=== PATIENT | female | born 1985 | race Caucasian/White ===

== ENCOUNTER 2017-09-30 08:18 | Inpatient (IN) | payer OTHER ==
[~2017-09-30] VITALS: Ht 167.6 cm; Wt 111.1 kg
[2017-09-30] MEDS ORDERED: ADV100INH INH (08:27)
[2017-09-30] MEDS ORDERED: LORA10TA2 PO (08:27)
[2017-09-30] MEDS ORDERED: ONDANSETRON 4MG/2ML VIAL (J2405) IV ONE (08:45)
[2017-09-30] MEDS ORDERED: NS 1,000 ML IV ONE (08:45)
[2017-09-30 09:05] LABS: BASO # 0.1 10^3/uL (0.0-0.2); BASO % 0.3 % (0.0-1.0); IMMATURE GRANULOCYTE % 1.2 % (0-0); LYMPH # 1.4 10^3/uL (1.5-4.5); MEAN CORPUSCULAR HEMOGLOBIN 28.3 pg (27.0-33.0); MEAN CORPUSCULAR HGB CONC 34.5 g/dl (32.0-36.5); MONO # 0.4 10^3/uL (0.0-0.8); MONO % 2.2 % (0.0-5.0); NEUTROPHILS % 87.3 % (36.0-66.0); PLATELET COUNT, AUTOMATED 320 10^3/uL (150-450); RED CELL DISTRIBUTION WIDTH 12.4 % (11.5-14.5); WHITE BLOOD COUNT 16.1 10^3/uL (4.0-10.0)
[2017-09-30] MEDS: MORPHINE 4 MG/ML 1ML SYRINGE IV PRN ×3 (09:19→16:16)
[2017-09-30 09:31] LABS: ALBUMIN 3.8 GM/DL (3.2-5.2); ALBUMIN/GLOBULIN RATIO 1.09 (1.00-1.93); ALKALINE PHOSPHATASE 82 U/L (45-117); ALT/SGPT 19 U/L (12-78); AMYLASE 28 U/L (25-115); ANION GAP 8 MEQ/L (8-16); AST/SGOT 9 U/L (7-37); BILIRUBIN,DIRECT 0.1 MG/DL (0.0-0.2); BILIRUBIN,TOTAL 0.4 MG/DL (0.2-1.0); BLOOD UREA NITROGEN 12 MG/DL (7-18); CALCIUM LEVEL 8.8 MG/DL (8.5-10.1); CARBON DIOXIDE LEVEL 26 MEQ/L (21-32); CHLORIDE LEVEL 106 MEQ/L (98-107); GLOMERULAR FILTRATION RATE > 60.0 (>60); GLUCOSE, FASTING 126 MG/DL (70-105); POTASSIUM SERUM 4.4 MEQ/L (3.5-5.1); SODIUM LEVEL 140 MEQ/L (136-145); TOTAL PROTEIN 7.3 GM/DL (6.4-8.2)
--- NOTE | 2017-09-30 09:37 | REP ---
Abdominal right upper quadrant ultrasound: There is a positive Reed's sign to transducer pressure. There is 2.5 cm calculus in the gallbladder neck. The gallbladder is distended measuring up to 4.0 cm transversely. This is compatible with hydrops in the appropriate clinical setting. The gallbladder wall is thickened measuring 4.1 mm compatible with edema. There is no pericholecystic fluid. Findings are compatible with acute cholecystitis in the appropriate clinical setting. There is no intrahepatic or extrahepatic biliary duct dilatation, the common duct measures 4.5 mm in diameter. The hepatic parenchyma is homogeneous and unremarkable. The visualized portion of the pancreatic neck is unremarkable. The body and tail are obscured by bowel gas. There is no right renal hydronephrosis, calculus, mass or cyst. Right kidney is normal size measuring 2.3 cm craniocaudad length. Visualized portion of the abdominal aorta is unremarkable. There is no free fluid in the abdominal right upper quadrant. Impression: The findings are compatible with gallbladder h hydrops and acute cholecystitis in the appropriate clinical setting. There is a 2.5 centimeter calculus in the gallbladder neck and gallbladder wall thickening. No pericholecystic fluid. No biliary duct dilatation. Signed by Anival Pope MD 09/30/2017 09:29 A
[2017-09-30] MEDS ORDERED: VENTAER INH (10:42)
[2017-09-30] MEDS ORDERED: TYLE325T5 PO (10:42)
[2017-09-30] MEDS ORDERED: MONO0.25 PO (10:42)
[2017-09-30] MEDS ORDERED: CIPROFLOXACIN 400 MG in APPROPRIATE DILUENT 1 EA IV ONE (10:45)
[2017-09-30] MEDS ORDERED: metroNIDAZOLE 500 MG in APPROPRIATE DILUENT 1 EA IV ONE (10:45)
[2017-09-30] MEDS ORDERED: METOCLOPRAMIDE INJ 10MG/2ML VIAL (J2765) IV ONE (12:15)
[2017-09-30] MEDS ORDERED: MORPHINE 4 MG/ML 1ML SYRINGE IV ONE (12:15)
[2017-09-30] MEDS ORDERED: PROMETHAZINE INJ 25 MG/ML VIAL (J2550) IV PRN (12:30)
[2017-09-30 13:45] VITALS: BP 165/88
[2017-09-30] MEDS: LR 1,000 ML IV SCH ×2 (14:30→20:40)
[2017-09-30] MEDS: NORCO, ANEXSIA 5/325MG TABLET (HYDROcodone/ACETAMINOPHEN) PO PRN ×2 (14:45→20:41)
[2017-09-30] MEDS: ONDANSETRON 4MG/2ML VIAL (J2405) IV PRN (15:49)
[2017-09-30 20:00] VITALS: BP 135/86
[2017-09-30] MEDS ORDERED: ALBUTEROL 90 MCG/ACT 8GM HFA INHALER INH PRN (20:30)
[2017-09-30] MEDS: SENOKOT S TAB PO SCH (20:40)
[2017-09-30] MEDS: metroNIDAZOLE 500 MG in APPROPRIATE DILUENT 1 EA IV SCH (20:41)
[2017-09-30] MEDS: PANTOPRAZOLE 40MG INJ (PROTONIX) (C9113) IV SCH (20:42)
[2017-09-30] MEDS: ENOXAPARIN 40 MG/0.4 ML SYRINGE (J1650) SC SCH (21:00)
[2017-09-30] MEDS: ADVAIR HFA 115/21MCG INHALER INH SCH (21:00)
--- NOTE | 2017-09-30 21:01 | HPEPDOC ---
General Date of Admission Chief Complaint The patient is a 32-year-old female admitted with a reason for visit of abdominal pain. Source: Patient History of Present Illness The abdominal pain began at 2100 last evening about 11 hours prior to arrival in ED. Never had pain like this before. Patient thought that she was experiencing "gas pains" but found no relief despite taking Gas-X or Pepcid at home. No change with Tums or using a heating pad. She describes the pain as RUQ in location with radiation through to the back and scapula, no shoulder pain. She describes the pain as sharp in quality and 6-7/10 in severity at its worst. The pain has been intermittent, waxing and waning but never fully resolving. Patient states she "couldn't get comfortable" although the pain did not change with position. Throughout the night and early this morning she reports increasing nausea which she attributes to the increasing pain. She had multiple episodes of vomiting at home and once in the ED. The vomit appeared orange initially and then changed to a yellow/green color. She vomited 6 times total but none since receiving Zofran in the ED. In the vomit, she recognized chunks of pizza which she had for dinner and shared with her and children. No other family members were sick after eating or have recently had GI symptoms. No recent fever, chills, night sweats or weight loss. No hematemesis or coffee ground emesis. Her stools have been looser than usual this morning but patient denies watery diarrhea, bloody stools or dark/tarry stools. Home Medications Scheduled ([place] 0.25-35 mg-Mcg) 1 Tab Tab, 1 TAB PO DAILY, (Reported) Loratadine (Loratadine) 10 Mg Tab, 10 MG PO QHS, (Reported) Salmeterol/Fluticasone (Advair Diskus 100-50 Mcg/Dose) 28 Puff/Inhaler Aerp, 1 PUFF INH BID, (Reported) Scheduled PRN Acetaminophen (Tylenol) 325 Mg Tab, 650 MG PO Q4H PRN for PAIN, (Reported) Albuterol Sulfate (Ventolin Hfa) 108 Mcg/Act Aer, 2 PUFFS INH Q4H PRN for SHORTNESS OF BREATH, (Reported) Allergies Coded Allergies: Azithromycin (Verified Allergy, Unknown, 09/30/17) Sulfa Antibiotics (Verified Allergy, Unknown, 09/30/17) Past Medical History Medical History PMH: Occasional heartburn for which she takes OTC medications mentioned in HPI as needed Asthma HOSPITALIZATIONS: none HEALTH MAINTENANCE: Pap smears UTD. Last mammogram in December. Received Flu shot one week ago. Surgical History Section x2, 2005 and 2007 Family History No history of gallbladder disease No history of liver disease No history of GI cancer Social History * Smoker: Denies Alcohol: rarely (glass of wine every 2-3 months) Drugs: denies Recent Travel/Sick Contacts: Denies: Recent sick contacts OCCUPATION: Stay at home mother. Lives locally with who is at bedside. DIET: Per , both have been eating more fast food recently. Review of Symptoms Constitutional: Denies: Chills, Fever, Night Sweats, Weight Loss ENT: Reports: Other Symptoms (URI symptoms last week including sore throat and stuffy nose last week but resolved now) Skin: Denies: Jaundice Pulmonary: Denies: Cough Cardiovascular: Denies: Chest Pain Gastrointestinal: Reports: Nausea, Vomiting, Abdominal Pain, Denies: Diarrhea, Constipation, Melena, Hematochezia Genitourinary: Denies: Dysuria Hematologic: Denies: Bruising, Bleeding Excessively Other systems LYMPH: no lymphadenopathy Physical Examination General Exam: Positive: Alert, Cooperative, No Acute Distress Eye Exam: Positive: Conjunctiva & lids normal (no scleral icterus) ENT Exam: Positive: Atraumatic Chest Exam: Positive: Normal air movement, Negative: Rales, Rhonchi, Wheezing Heart Exam: Positive: Rate Normal, Regular Rhythm, Negative: Murmurs Abdomen Exam: Positive: Normal bowel sounds, Soft, Tenderness (RUQ with voluntary guarding and positive Reed's sign, no rebound), Negative: Hepatospenomegaly Extremity Exam: Negative: Clubbing, Cyanosis, Edema Skin Exam: Negative: Pruritus (no jaundice) Neuro Exam: Positive: Normal Speech Psych Exam: Positive: Mood NL Vital Signs Vital Signs Date Time Temp Pulse Resp B/P (MAP) Pulse Ox O2 Delivery O2 Flow Rate FiO2 09/30/17 12:24 18 09/30/17 11:28 98.6 72 171/94 (119) 98 09/30/17 10:21 Room Air Laboratory Data Labs 24H Laboratory Tests 2 09/30/17 08:54: Immature Granulocyte % (Auto) 1.2H, White Blood Count 16.1H, Red Blood Count 5.06, Hemoglobin 14.3, Hematocrit 41.5, Mean Corpuscular Volume 82.0, Mean Corpuscular Hemoglobin 28.3, Mean Corpuscular Hemoglobin Concent 34.5, Red Cell Distribution Width 12.4, Platelet Count 320, Neutrophils (%) (Auto) 87.3H, Lymphocytes (%) (Auto) 9.0L, Monocytes (%) (Auto) 2.2, Eosinophils (%) (Auto) 0.0, Basophils (%) (Auto) 0.3, Neutrophils # (Auto) 14.0H, Lymphocytes # (Auto) 1.4L, Monocytes # (Auto) 0.4, Eosinophils # (Auto) 0.0, Basophils # (Auto) 0.1, Immature Granulocyte # (Auto) 0.2H, Nucleated Red Blood Cells % (auto) 0.0, Anion Gap 8, Glomerular Filtration Rate > 60.0, Calcium Level 8.8, Aspartate Amino Transf (AST/SGOT) 9, Alanine Aminotransferase (ALT/SGPT) 19, Alkaline Phosphatase 82, Total Bilirubin 0.4, Direct Bilirubin 0.1, Total Protein 7.3, Albumin 3.8, Albumin/Globulin Ratio 1.09, Amylase Level 28, Lipase 145 09/30/17 10:02: Urine Appearance CLEAR, Urine Color YELLOW, Urine pH 5.0, Urine Specific [place] 1.027, Urine Protein NEGATIVE, Urine Glucose (UA) NEGATIVE, Urine Ketones 1+H, Urine Urobilinogen 0.2, Urine Bilirubin NEGATIVE, Urine Leukocyte Esterase NEGATIVE, Urine Blood NEGATIVE, Urine Nitrite NEGATIVE, Urine WBC (Auto ) 0, Urine RBC (Auto) 1, Urine Hyaline Casts (Auto) 0, Urine Bacteria (Auto) NEGATIVE, Urine Squamous Epithelial Cells 1, Urine Mucus (Auto) SMALL, Urine Sperm (Auto) CBC/BMP Laboratory Tests 09/30/17 08:54 Red Blood Count 5.06, Mean Corpuscular Volume 82.0, Mean Corpuscular Hemoglobin 28.3, Mean Corpuscular Hemoglobin Concent 34.5, Red Cell Distribution Width 12.4 , Neutrophils (%) (Auto) 87.3 H, Lymphocytes (%) (Auto) 9.0 L, Monocytes (%) ( Auto) 2.2, Eosinophils (%) (Auto) 0.0, Basophils (%) (Auto) 0.3, Neutrophils # ( Auto) 14.0 H, Lymphocytes # (Auto) 1.4 L, Monocytes # (Auto) 0.4, Eosinophils # (Auto) 0.0, Basophils # (Auto) 0.1 RAD Interpretation STUDY: ULTRASOUND RUQ Rad Actions: Report Reviewed RAD Interpretation: Other Result Comments: (2.5cm calculus in the gallbladder neck and GBW thickening. No pericholecystic fluid. No biliary duct dilation) Assessment/Plan 1. Acute Cholecystitis. Gallbladder ultrasound that the findings are compatible with gallbladder hydrops and acute cholecystitis in the appropriate clinical setting. There is a 2.5 centimeter calculus in the gallbladder neck and gallbladder wall thickening. No pericholecystic fluid. No biliary duct dilatation. Patient will be admitted. NPO today. Laparoscopic cholecystomy in the am. Will continue with pain management, fluids at 175mls/ hour and antibiotics (cipro and flagyl). Also zofran PRN on board for nausea, Will continue with home medication for asthma while inpatient as well. Plan / VTE VTE Prophylaxis Ordered?: Yes (LOVENOX) GME ATTESTATION GME ATTESTATION My preceptor for this patient encounter was physically present in the building during the encounter and was fully available. As needed, all aspects of the patient interview, examination, medical decision making process, and medical care plan development were reviewed and approved by the preceptor. Preceptor is aware and concurs with the plan as stated in the body of this note and will attest to such by his/her cosignature. HENRY AMAYA DO Sep 30, 2017 13:45
[2017-09-30 22:00] VITALS: BP 135/86
[2017-09-30] MEDS: CIPROFLOXACIN 400 MG in APPROPRIATE DILUENT 1 EA IV SCH (23:37)
[2017-10-01 04:00] VITALS: BP 135/81
[2017-10-01] MEDS: metroNIDAZOLE 500 MG in APPROPRIATE DILUENT 1 EA IV SCH ×3 (05:42→20:18)
[2017-10-01 08:00] VITALS: BP 138/79
[2017-10-01] MEDS: ADVAIR HFA 115/21MCG INHALER INH SCH ×2 (08:01→19:33)
[2017-10-01] MEDS: NORCO, ANEXSIA 5/325MG TABLET (HYDROcodone/ACETAMINOPHEN) PO PRN ×2 (08:28→12:34)
[2017-10-01] MEDS: LR 1,000 ML IV SCH ×2 (08:28→19:08)
[2017-10-01] MEDS: SENOKOT S TAB PO SCH ×2 (09:00→20:18)
--- NOTE | 2017-10-01 10:43 | IPNPDOC ---
Subjective General Date/Time Seen The patient was seen on 10/01/17 at 10:41. Subject Chief Complaint/History The patient is a 32-year-old female admitted with a reason for visit of Acute Cholecystitis. Current Medications Current Medications Current Medications Acetaminophen/ Hydrocodone Bitart ([place], Anexsia 5/325) 1 tab Q4HP PRN PO MODERATE PAIN (PS 5-7) Last administered on 10/01/17 08:28; Start 09/30/17 at 12:30; Stop 10/07/17 at 12:29 Acetaminophen/ Hydrocodone Bitart ([place], Anexsia 5/325) 2 tab Q6HP PRN PO SEVERE PAIN (PS 8-10); Start 09/30/17 at 12:30; Stop 10/07/17 at 12:29 Albuterol Sulfate (Proventil, Ventolin Hfa) 2 puff Q6HP PRN INH SHORTNESS OF BREATH; Start 09/30/17 at 20:30; Stop 10/30/17 at 20:29 Ciprofloxacin 400 mg/IV Miscellaneous Supplies 200 ml @ 200 mls/hr Q12H IV Last administered on 09/30/17 23:37; Start 10/01/17 at 00:00; Stop 10/08/17 at 00:00 Enoxaparin Sodium (Lovenox) 40 mg DAILY@2100 SC ; Start 09/30/17 at 21:00; Stop 10/05/17 at 20:59 Home Med (Med Rec Complete!) ASDIRECTED XX ; Start 09/30/17 at 10:45; Stop 09/30/17 at 10:45; Status DC Lactated Ringer's 1,000 ml @ 125 mls/hr Q8H IV Last administered on 10/01/17 08:28; Start 09/30/17 at 12:20; Stop 10/30/17 at 12:19 Metronidazole 500 mg/IV Miscellaneous Supplies 100 ml @ 100 mls/hr Q8H IV Last administered on 10/01/17 05:42; Start 09/30/17 at 21:00; Stop 10/07/17 at 20:59 Morphine Sulfate (Morphine Sulfate Inj) 4 mg Q15M PRN IV MODERATE/SEVERE PAIN ( PS 5-10) Last administered on 09/30/17 10:25; Start 09/30/17 at 08:45; Stop at 10:30; Status DC Morphine Sulfate (Morphine Sulfate Inj) 4 mg Q2HP PRN IV SEVERE PAIN (PS 8-10) Last administered on 09/30/17 16:16; Start 09/30/17 at 12:30; Stop 10/07/17 at 12:29 Ondansetron HCl (ZOFRAN INJection) 4 mg Q6HP PRN IV NAUSEA OR VOMITING Last administered on 09/30/17 15:49; Start 09/30/17 at 12:30; Stop 10/30/17 at 12:29 Pantoprazole Sodium (Protonix) 40 mg DAILY@2100 IV Last administered on 20:42; Start 09/30/17 at 21:00; Stop 10/30/17 at 20:59 Promethazine HCl (PHENERGAN INJection) 12.5 mg Q6HP PRN IV NAUSEA Last administered on 09/30/17 20:42; Start 09/30/17 at 12:30; Stop 10/30/17 at 12:29 Salmeterol Xinafoate/ Fluticasone (Advair Hfa 115/ 21) 2 puff BID INH Last administered on 10/01/17 08:01; Start 09/30/17 at 21:00; Stop 10/30/17 at 20:59 Senna/Docusate Sodium (Senokot S) 1 tab BID PO Last administered on 09/30/17 20:40; Start 09/30/17 at 21:00; Stop 10/30/17 at 20:59 Allergies Coded Allergies: Azithromycin (Verified Allergy, Unknown, 09/30/17) Sulfa Antibiotics (Verified Allergy, Unknown, 09/30/17) Objective Physical Examination Examination GENERAL APPEARANCE:mildly uncomfortable. SKIN: Warm and moist. HEENT: Normocephalic, atraumatic. [place] palpebral conjunctiva, anicteric sclerae. Lips and mucosa appear moist. NECK: Supple, no thyromegaly. No obvious jugular venous distention. LUNGS: Clear to auscultation bilaterally. No wheezing appreciated. HEART: No chest wall abnormalities. Regular rate and rhythm with no murmurs appreciated. ABDOMEN: Abdomen is round, soft, minimally distended. mildly tender right upper quadrant area,. EXTREMITIES: Extremities have no deformities. No edema identified. Vital Signs Vital Signs Date Time Temp Pulse Resp B/P (MAP) Pulse Ox O2 Delivery O2 Flow Rate FiO2 10/01/17 09:15 18 10/01/17 08:00 98.6 88 138/79 (98) 98 Room Air I&Os I&O- Last 24 Hours up to 6 AM 10/02/17 06:00 Intake Total 0 ml Output Total 450 ml Balance -450 ml Impression Acute Cholecystitis Continue with IV antibiotics Patient for lap cholecystectomy today. Reviewed with her risks and benefits of the procedure including risks for bleeding, bile duct injury, bile leakage, possible need for conversion to open surgery. Consent obtained from the patient. Plan / VTE VTE Prophylaxis Ordered?: Yes (LOVENOX) RAJESH CABALLERO MD Oct 01, 2017 10:43
[2017-10-01] MEDS: CIPROFLOXACIN 400 MG in APPROPRIATE DILUENT 1 EA IV SCH (11:03)
[2017-10-01] MEDS: ONDANSETRON 4MG/2ML VIAL (J2405) IV PRN (12:34)
[2017-10-01 16:00] VITALS: BP 132/79
[2017-10-01] MEDS: ENOXAPARIN 40 MG/0.4 ML SYRINGE (J1650) SC SCH (19:46)
[2017-10-01] MEDS: PANTOPRAZOLE 40MG INJ (PROTONIX) (C9113) IV SCH (20:18)
[2017-10-02] VITALS (7 sets, daily range): BP systolic 122–153; BP diastolic 70–93
[2017-10-02] MEDS: CIPROFLOXACIN 400 MG in APPROPRIATE DILUENT 1 EA IV SCH ×3 (00:01→23:09)
[2017-10-02] MEDS: LR 1,000 ML IV SCH ×3 (03:00→12:20)
[2017-10-02] MEDS: metroNIDAZOLE 500 MG in APPROPRIATE DILUENT 1 EA IV SCH ×3 (05:40→21:09)
[2017-10-02] MEDS: ADVAIR HFA 115/21MCG INHALER INH SCH ×2 (08:28→19:35)
[2017-10-02] MEDS: SENOKOT S TAB PO SCH ×2 (08:33→21:09)
[2017-10-02] MEDS ORDERED: BUPIVACAINE HCL 0.25% 30 ML VIAL As Ordered ONE (10:59)
[2017-10-02] MEDS ORDERED: LIDOCAINE 1% SDV INJ 30 ML VIAL As Ordered ONE (10:59)
--- NOTE | 2017-10-02 11:09 | IPNPDOC ---
Subjective General Date/Time Seen The patient was seen on 10/02/17 at 11:07. Subject Chief Complaint/History The patient is a 32-year-old female admitted with a reason for visit of Acute Cholecystitis. Still some mild right upper quadrant pressure type discomfort, no nausea. Afebrile. Current Medications Current Medications Current Medications Acetaminophen/ Hydrocodone Bitart ([place], Anexsia 5/325) 1 tab Q4HP PRN PO MODERATE PAIN (PS 5-7) Last administered on 10/01/17 12:34; Start 09/30/17 at 12:30; Stop 10/07/17 at 12:29 Acetaminophen/ Hydrocodone Bitart ([place], Anexsia 5/325) 2 tab Q6HP PRN PO SEVERE PAIN (PS 8-10); Start 09/30/17 at 12:30; Stop 10/07/17 at 12:29 Albuterol Sulfate (Proventil, Ventolin Hfa) 2 puff Q6HP PRN INH SHORTNESS OF BREATH; Start 09/30/17 at 20:30; Stop 10/30/17 at 20:29 Ciprofloxacin 400 mg/IV Miscellaneous Supplies 200 ml @ 200 mls/hr Q12H IV Last administered on 10/02/17 00:01; Start 10/01/17 at 00:00; Stop 10/08/17 at 00:00 Enoxaparin Sodium (Lovenox) 40 mg DAILY@2100 SC ; Start 09/30/17 at 21:00; Stop 10/05/17 at 20:59 Home Med (Med Rec Complete!) ASDIRECTED XX ; Start 09/30/17 at 10:45; Stop 09/30/17 at 10:45; Status DC Lactated Ringer's 1,000 ml @ 125 mls/hr Q8H IV Last administered on 10/02/17 03:00; Start 09/30/17 at 12:20; Stop 10/30/17 at 12:19 Metronidazole 500 mg/IV Miscellaneous Supplies 100 ml @ 100 mls/hr Q8H IV Last administered on 10/02/17 05:40; Start 09/30/17 at 21:00; Stop 10/07/17 at 20:59 Morphine Sulfate (Morphine Sulfate Inj) 4 mg Q15M PRN IV MODERATE/SEVERE PAIN ( PS 5-10) Last administered on 09/30/17 10:25; Start 09/30/17 at 08:45; Stop at 10:30; Status DC Morphine Sulfate (Morphine Sulfate Inj) 4 mg Q2HP PRN IV SEVERE PAIN (PS 8-10) Last administered on 09/30/17 16:16; Start 09/30/17 at 12:30; Stop 10/07/17 at 12:29 Ondansetron HCl (ZOFRAN INJection) 4 mg Q6HP PRN IV NAUSEA OR VOMITING Last administered on 10/01/17 12:34; Start 09/30/17 at 12:30; Stop 10/30/17 at 12:29 Pantoprazole Sodium (Protonix) 40 mg DAILY@2100 IV Last administered on 20:18; Start 09/30/17 at 21:00; Stop 10/30/17 at 20:59 Promethazine HCl (PHENERGAN INJection) 12.5 mg Q6HP PRN IV NAUSEA Last administered on 09/30/17 20:42; Start 09/30/17 at 12:30; Stop 10/30/17 at 12:29 Salmeterol Xinafoate/ Fluticasone (Advair Hfa 115/ 21) 2 puff BID INH Last administered on 10/02/17 08:28; Start 09/30/17 at 21:00; Stop 10/30/17 at 20:59 Senna/Docusate Sodium (Senokot S) 1 tab BID PO Last administered on 10/02/17 08:33; Start 09/30/17 at 21:00; Stop 10/30/17 at 20:59 Allergies Coded Allergies: Azithromycin (Verified Allergy, Unknown, 09/30/17) Sulfa Antibiotics (Verified Allergy, Unknown, 09/30/17) Objective Physical Examination Examination GENERAL APPEARANCE:Comfortable. SKIN: Warm and moist. HEENT: Normocephalic, atraumatic. [place] palpebral conjunctiva, anicteric sclerae. Lips and mucosa appear moist. NECK: Supple, no thyromegaly. No obvious jugular venous distention. LUNGS: Clear to auscultation bilaterally. No wheezing appreciated. HEART: No chest wall abnormalities. Regular rate and rhythm with no murmurs appreciated. ABDOMEN: Abdomen is round, soft, nondistended. Minimal right upper quadrant tenderness. EXTREMITIES: Extremities have no deformities. No edema identified. Vital Signs Vital Signs Date Time Temp Pulse Resp B/P (MAP) Pulse Ox O2 Delivery O2 Flow Rate FiO2 10/02/17 08:15 Room Air 10/02/17 08:15 98.2 87 18 134/75 (94) 98 I&Os I&O- Last 24 Hours up to 6 AM 10/03/17 06:00 Output Total 300 ml Balance -300 ml Impression Acute Cholecystitis Patient for laparoscopic cholecystectomy today. Reviewed with her and her details fo the procedure, small possiblity of converting to open surgery , risks of bile duct injury, bile leakage. Plan / VTE VTE Prophylaxis Ordered?: Yes (LOVENOX) RAJESH CABALLERO MD Oct 02, 2017 11:09
[2017-10-02] MEDS ORDERED: fentaNYL 250 MCG/5 ML INJECTION (J3010) As Ordered ONE (11:41)
[2017-10-02] MEDS ORDERED: KETOROLAC 60 MG/2 ML VIAL (J1885) As Ordered ONE (11:41)
[2017-10-02] MEDS ORDERED: LIDOCAINE 2% INJ 100 MG/5 ML SDV (FOR ANES.) As Ordered ONE (11:41)
[2017-10-02] MEDS ORDERED: ONDANSETRON 4MG/2ML VIAL (J2405) As Ordered ONE ×2 (11:41→14:27)
[2017-10-02] MEDS ORDERED: ROCURONIUM BROMIDE 50 MG/5 ML VIAL As Ordered ONE (11:41)
[2017-10-02] MEDS ORDERED: PROPOFOL 200 MG/20 ML VIAL As Ordered ONE ×2 (11:41→13:47)
[2017-10-02] MEDS ORDERED: MIDAZOLAM INJ 2 MG/2 ML VIAL (J2250) As Ordered ONE (11:41)
[2017-10-02] MEDS ORDERED: dexameTHASONE 4 MG/ML 1ML VIAL (J1100) As Ordered ONE (11:41)
[2017-10-02] MEDS ORDERED: NEOSTIGMINE 10 MG/10 ML VIAL (J2710) As Ordered ONE (11:42)
[2017-10-02] MEDS ORDERED: GLYCOPYRROLATE INJ 0.2 MG/ML 2 ML VIAL As Ordered ONE (11:42)
[2017-10-02] MEDS ORDERED: fentaNYL 100 MCG/2 ML INJECTION (J3010) As Ordered ONE ×2 (13:09→14:00)
--- NOTE | 2017-10-02 14:14 | ROOPDOC ---
[facility] Report Of Operation Report of Operation DATE OF PROCEDURE: 10/02/17 PREPROCEDURE DIAGNOSES: Acute Cholecystitis, Hydrops of gallbladder. POSTPROCEDURE DIAGNOSES: Acute Cholecystitis, Hydrops of gallbladder. PROCEDURE: Laparoscopic Cholecystectomy. SURGEON: Reilly Stroud MD PATIENT FINANCIAL COUNSELOR: ANESTHESIA: general. ESTIMATED BLOOD LOSS: Approximately 100 mL. COMPLICATIONS: none. REMARKS: 10 flat FER drain left in close to gallbladder bed. Thickened, inflamed and markedly enlarged gallbladder extending close to level of umbilicus with large stones within gallbladder including gallbladder neck. PROCEDURE NOTE: 32 F with acute onset of right upper quadrant pain admitted for acute cholecystitis, hydrops of gallbladder with large 3 cm stone at the neck of the gallbladder. DESCRIPTION OF PROCEDURE: Patient was receiving ciprofloxacin and metronidazole perioperatively for acute cholecystitis. She was brought to the operating room, laid supine on the table, compression boots placed for DVT prophylaxis. General endotracheal anesthesia started. Her abdomen then prepped and draped in usual sterile fashion. Surgical timeout was performed prior to starting surgery. Entry into the abdomen done through an incision above the umbilicus. A Veress needle was inserted with a controlled fashion. CO2 insufflation started to pressure 15 mmHg. Using the same incision a 5 mm Visiport was placed under direct vision laparoscope. The area underneath the insertion site was inspected and no injury found. She was then placed in steep reverse Trendelenburg. Her right side was tilted up to further expose the gallbladder. Under direct vision a 11 mm epigastric port and 25 mm working ports placed along the right subcostal line. Operative findings: Markedly distended and inflamed gallbladder with the gallbladder fundus extending to the level of the umbilicus. Hydrops of the gallbladder with aspiration of clear colorless fluid. Chronically fibrosed gallbladder. Her liver is noted to be smooth in contour no nodularities or lesions found. Her gallbladder is markedly thickened, markedly distended. Acutely inflamed on top of a chronically thickened, fibrosed gallbladder. Gallbladder was decompressed with an aspirating needle and 60 mL syringe with clear colorless fluid intake and output of the gallbladder. The fundus of the gallbladder was grasped and the gallbladder was elevated superiorly exposing the neck of the gallbladder. The peritoneum overlying the area was opened up and dissected free both anteriorly and posteriorly to help with retraction of the gallbladder. The hepatocystic triangle was approached and dissected using a [place] and instrument. The cystic duct was identified coming off from the next gallbladder this was circumferentially dissected. The cystic artery was identified in its usual position medially behind a small lymph node of [place]. This was similarly circumferentially dissected off surrounding adipose tissue. We continued posterior dissection proximally at the next gallbladder until a critical view of safety was achieved whereby only the previously identified duct and artery coursing through the neck the gallbladder. At this point the cystic artery was clipped 4 times and divided. After again checking her anatomy and verifying that the previously identified cystic duct, this was also clipped 4 times and divided. The rest of the gallbladder was then dissected free of the gallbladder bed using Bovie cautery. There was minimal bleeding at the lateral gallbladder attachments to the liver capsule this was easily controlled with Bovie cautery. The gallbladder was then placed in an Endo Catch bag and retrieved outside through the epigastric port site. Under insufflation and inspected the clips and noted this to be in place. No further bleeding noted. No bile leakage noted. A 10 flat FER drain was left in place at the gallbladder bed. The abdomen was insufflated all ports were removed. The epigastric fascial defect repaired with 0 Vicryl in a mattress fashion. Rest of the skin incisions closed with 4-0 Monocryl in subcuticular fashion. Steri- Strips and gauze dressings were placed, the wound. Patient was informed they awakened, extubated and brought to recovery room stable RAJESH STROUD MD Oct 02, 2017 14:14
[2017-10-02] MEDS ORDERED: NORCO, ANEXSIA 5/325MG TABLET (HYDROcodone/ACETAMINOPHEN) As Ordered ONE (14:27)
[2017-10-02] MEDS ORDERED: ONDANSETRON 4MG/2ML VIAL (J2405) IV PRN (14:30)
[2017-10-02] MEDS ORDERED: fentaNYL 100 MCG/2 ML INJECTION (J3010) IV PRN (14:30)
[2017-10-02] MEDS ORDERED: NORCO, ANEXSIA 5/325MG TABLET (HYDROcodone/ACETAMINOPHEN) PO PRN (14:30)
[2017-10-02] MEDS ORDERED: LR 1,000 ML IV SCH (14:30)
[2017-10-02] MEDS ORDERED: CIPROFLOXACIN/D5W 400 MG/200 ML BAG (J0744) As Ordered ONE (14:52)
[2017-10-02] MEDS: MORPHINE 4 MG/ML 1ML SYRINGE IV PRN ×2 (17:01→19:10)
[2017-10-02] MEDS ORDERED: LORATADINE 10 MG TAB PO SCH (21:00)
[2017-10-02] MEDS: PANTOPRAZOLE 40MG INJ (PROTONIX) (C9113) IV SCH (21:09)
[2017-10-02] MEDS: ENOXAPARIN 40 MG/0.4 ML SYRINGE (J1650) SC SCH (21:09)
[2017-10-03] VITALS: BP 129/71
[2017-10-03] MEDS: NORCO, ANEXSIA 5/325MG TABLET (HYDROcodone/ACETAMINOPHEN) PO PRN ×2 (03:46→10:55)
[2017-10-03] MEDS: ONDANSETRON 4MG/2ML VIAL (J2405) IV PRN ×2 (03:50→10:54)
[2017-10-03] MEDS: metroNIDAZOLE 500 MG in APPROPRIATE DILUENT 1 EA IV SCH (05:25)
[2017-10-03] MEDS: ADVAIR HFA 115/21MCG INHALER INH SCH (07:57)
[2017-10-03 08:00] VITALS: BP 140/79
[2017-10-03] MEDS: SENOKOT S TAB PO SCH (08:44)
[2017-10-03 08:57] LABS: BASO % 0.2 % (0.0-1.0); EOS # 0.1 10^3/uL (0.0-0.50); EOS % 0.5 % (0.0-3.0); IMMATURE GRANULOCYTE % 0.6 % (0-0); LYMPH # 3.3 10^3/uL (1.5-4.5); LYMPH % 27.7 % (24.0-44.0); MEAN CORPUSCULAR HEMOGLOBIN 28.7 pg (27.0-33.0); MEAN CORPUSCULAR HGB CONC 34.5 g/dl (32.0-36.5); MEAN CORPUSCULAR VOLUME 83.4 fl (80.0-96.0); MONO # 0.9 10^3/uL (0.0-0.8); MONO % 7.4 % (0.0-5.0); NEUTROPHILS # 7.5 10^3/uL (1.8-7.7); NEUTROPHILS % 63.6 % (36.0-66.0); PLATELET COUNT, AUTOMATED 256 10^3/uL (150-450); RED CELL DISTRIBUTION WIDTH 12.6 % (11.5-14.5); WHITE BLOOD COUNT 11.8 10^3/uL (4.0-10.0)
[2017-10-03 09:20] LABS: ALBUMIN 3.1 GM/DL (3.2-5.2); ALKALINE PHOSPHATASE 75 U/L (45-117); ALT/SGPT 37 U/L (12-78); ANION GAP 6 MEQ/L (8-16); AST/SGOT 26 U/L (7-37); BILIRUBIN,TOTAL 0.4 MG/DL (0.2-1.0); BLOOD UREA NITROGEN 7 MG/DL (7-18); CALCIUM LEVEL 8.8 MG/DL (8.5-10.1); CARBON DIOXIDE LEVEL 28 MEQ/L (21-32); CHLORIDE LEVEL 107 MEQ/L (98-107); CREATININE FOR GFR 0.68 MG/DL (0.55-1.02); GLOMERULAR FILTRATION RATE > 60.0 (>60); GLUCOSE, FASTING 110 MG/DL (70-105); POTASSIUM SERUM 4.2 MEQ/L (3.5-5.1); SODIUM LEVEL 141 MEQ/L (136-145); TOTAL PROTEIN 6.2 GM/DL (6.4-8.2)
--- NOTE | 2017-10-03 10:07 | IPNPDOC ---
Subjective General Date/Time Seen The patient was seen on 10/03/17 at 10:02. Subject Chief Complaint/History The patient is a 32-year-old female admitted with a reason for visit of Acute Cholecystitis. Patient reports doing well after the surgery. Denies any nausea. She is tolerating regular food. Minimal discomfort at the incision sites. Current Medications Current Medications Current Medications Acetaminophen/ Hydrocodone Bitart ([place], Anexsia 5/325) 1 tab ASDIRECTED PRN PO MILD/MODERATE PAIN (PS 1-7) Last administered on 10/02/17 14:30; Start 10/02 at 14:30; Stop 10/02/17 at 15:30; Status DC Acetaminophen/ Hydrocodone Bitart ([place], Anexsia 5/325) 1 tab Q4HP PRN PO MODERATE PAIN (PS 5-7) Last administered on 10/01/17 12:34; Start 09/30/17 at 12:30; Stop 10/07/17 at 12:29 Acetaminophen/ Hydrocodone Bitart ([place], Anexsia 5/325) 2 tab Q6HP PRN PO SEVERE PAIN (PS 8-10) Last administered on 10/03/17 03:46; Start 09/30/17 at 12 :30; Stop 10/07/17 at 12:29 Albuterol Sulfate (Proventil, Ventolin Hfa) 2 puff Q6HP PRN INH SHORTNESS OF BREATH; Start 09/30/17 at 20:30; Stop 10/30/17 at 20:29 Ciprofloxacin 400 mg/IV Miscellaneous Supplies 200 ml @ 200 mls/hr Q12H IV Last administered on 10/02/17 23:09; Start 10/01/17 at 00:00; Stop 10/08/17 at 00:00 Enoxaparin Sodium (Lovenox) 40 mg DAILY@2100 SC Last administered on 10/02/17 21:09; Start 09/30/17 at 21:00; Stop 10/05/17 at 20:59 Fentanyl Citrate (Sublimaze) 25 mcg Q5MP PRN IV MODERATE PAIN (PS 4-7); Start 10/02/17 at 14:30; Stop 10/02/17 at 15:30; Status DC Home Med (Med Rec Complete!) ASDIRECTED XX ; Start 09/30/17 at 10:45; Stop 09/30/17 at 10:45; Status DC Lactated Ringer's 1,000 ml @ 100 mls/hr Q10H IV ; Start 10/02/17 at 14:30; Stop 10/02/17 at 15:30; Status DC Lactated Ringer's 1,000 ml @ 125 mls/hr Q8H IV Last administered on 10/02/17 03:00; Start 09/30/17 at 12:20; Stop 10/03/17 at 04:48; Status DC Loratadine (Claritin) 10 mg QHS PO Last administered on 10/02/17 21:09; Start 10/02/17 at 21:00; Stop 11/01/17 at 20:59 Metronidazole 500 mg/IV Miscellaneous Supplies 100 ml @ 100 mls/hr Q8H IV Last administered on 10/03/17 05:25; Start 09/30/17 at 21:00; Stop 10/07/17 at 20:59 Morphine Sulfate (Morphine Sulfate Inj) 4 mg Q15M PRN IV MODERATE/SEVERE PAIN ( PS 5-10) Last administered on 09/30/17 10:25; Start 09/30/17 at 08:45; Stop at 10:30; Status DC Morphine Sulfate (Morphine Sulfate Inj) 4 mg Q2HP PRN IV SEVERE PAIN (PS 8-10) Last administered on 10/02/17 19:10; Start 09/30/17 at 12:30; Stop 10/07/17 at 12:29 Ondansetron HCl (ZOFRAN INJection) 4 mg Q4HP PRN IV NAUSEA OR VOMITING Last administered on 10/02/17 14:32; Start 10/02/17 at 14:30; Stop 10/02/17 at 15:30 ; Status DC Ondansetron HCl (ZOFRAN INJection) 4 mg Q6HP PRN IV NAUSEA OR VOMITING Last administered on 10/03/17 03:50; Start 09/30/17 at 12:30; Stop 10/30/17 at 12:29 Pantoprazole Sodium (Protonix) 40 mg DAILY@2100 IV Last administered on 21:09; Start 09/30/17 at 21:00; Stop 10/30/17 at 20:59 Promethazine HCl (PHENERGAN INJection) 12.5 mg Q6HP PRN IV NAUSEA Last administered on 09/30/17 20:42; Start 09/30/17 at 12:30; Stop 10/30/17 at 12:29 Salmeterol Xinafoate/ Fluticasone (Advair Hfa 115/ 21) 2 puff BID INH Last administered on 10/03/17 07:57; Start 09/30/17 at 21:00; Stop 10/30/17 at 20:59 Senna/Docusate Sodium (Senokot S) 1 tab BID PO Last administered on 10/03/17 08:44; Start 09/30/17 at 21:00; Stop 10/30/17 at 20:59 Allergies Coded Allergies: Azithromycin (Verified Allergy, Unknown, 09/30/17) Sulfa Antibiotics (Verified Allergy, Unknown, 09/30/17) Objective Physical Examination Examination GENERAL APPEARANCE:[Patient seen, laying in bed, awake, alert, and oriented. Comfortable, in no acute distress]. SKIN: [Warm and moist]. HEENT: [Normocephalic, atraumatic. [place] palpebral conjunctiva, anicteric sclerae. Lips and mucosa appear moist]. NECK: [Supple, no thyromegaly. No obvious jugular venous distention]. LUNGS: [Clear to auscultation bilaterally. No wheezing appreciated]. HEART: [No chest wall abnormalities. Regular rate and rhythm with no murmurs appreciated]. ABDOMEN: Abdomen is round, soft, nondistended. Port sites dressings are clean, dry and intact. FER drain with light pink serosanguineous fluid starting to get serous in the tube. EXTREMITIES: [Extremities have no deformities. No edema identified]. Vital Signs Vital Signs Date Time Temp Pulse Resp B/P (MAP) Pulse Ox O2 Delivery O2 Flow Rate FiO2 10/03/17 08:00 98.5 99 18 140/79 (99) 97 Room Air 10/02/17 17:00 2.0 I&Os I&O- Last 24 Hours up to 6 AM 10/04/17 06:00 Output Total 400 ml Balance -400 ml Laboratory Data Labs 24H Laboratory Tests 2 10/03/17 08:34: Immature Granulocyte % (Auto) 0.6H, White Blood Count 11.8H, Red Blood Count 4.28, Hemoglobin 12.3, Hematocrit 35.7L, Mean Corpuscular Volume 83.4, Mean Corpuscular Hemoglobin 28.7, Mean Corpuscular Hemoglobin Concent 34.5, Red Cell Distribution Width 12.6, Platelet Count 256, Neutrophils (%) (Auto) 63.6, Lymphocytes (%) (Auto) 27.7, Monocytes (%) (Auto) 7.4H, Eosinophils (%) (Auto) 0.5, Basophils (%) (Auto) 0.2, Neutrophils # (Auto) 7.5, Lymphocytes # (Auto) 3.3, Monocytes # (Auto) 0.9H, Eosinophils # (Auto) 0.1, Basophils # (Auto) 0.0, Immature Granulocyte # (Auto) 0.1H, Nucleated Red Blood Cells % (auto) 0.0, Anion Gap 6L, Glomerular Filtration Rate > 60.0, Blood Urea Nitrogen 7, Creatinine 0.68, Sodium Level 141, Potassium Level 4.2, Chloride Level 107, Carbon Dioxide Level 28, Calcium Level 8.8, Aspartate Amino Transf (AST/SGOT) 26 , Alanine Aminotransferase (ALT/SGPT) 37, Alkaline Phosphatase 75, Total Bilirubin 0.4, Total Protein 6.2L, Albumin 3.1L, Albumin/Globulin Ratio 1.00 CBC/BMP Laboratory Tests 10/03/17 08:34 Red Blood Count 4.28, Mean Corpuscular Volume 83.4, Mean Corpuscular Hemoglobin 28.7, Mean Corpuscular Hemoglobin Concent 34.5, Red Cell Distribution Width 12.6 , Neutrophils (%) (Auto) 63.6, Lymphocytes (%) (Auto) 27.7, Monocytes (%) (Auto ) 7.4 H, Eosinophils (%) (Auto) 0.5, Basophils (%) (Auto) 0.2, Neutrophils # ( Auto) 7.5, Lymphocytes # (Auto) 3.3, Monocytes # (Auto) 0.9 H, Eosinophils # ( Auto) 0.1, Basophils # (Auto) 0.0, Calcium Level 8.8, Aspartate Amino Transf ( AST/SGOT) 26, Alanine Aminotransferase (ALT/SGPT) 37, Alkaline Phosphatase 75, Total Bilirubin 0.4, Total Protein 6.2 L, Albumin 3.1 L Impression Acute cholecystitis postop day 1 laparoscopic cholecystectomy She looks comfortable at this point. She is tolerating regular food. Her postoperative laboratories are well within expected. She will be discharged home. Her drain will be discontinued. Plan / VTE VTE Prophylaxis Ordered?: Yes (LOVENOX) RAJESH CABALLERO MD Oct 03, 2017 10:07
[2017-10-03] MEDS ORDERED: NORCOTAB PO (10:09)
--- NOTE | 2017-10-31 09:52 | DS.PDOC ---
Discharge Summary General Date of Admission Sep 30, 2017 at 12:20 Date of Discharge 10/03/2017 Attending Physician: RAJESH CABALLERO MD Discharge Summary PROCEDURES PERFORMED DURING STAY: Laparoscopic cholecystectomy ADMITTING DIAGNOSES: 1. Acute cholecystitis. DISCHARGE DIAGNOSES: 1. Acute cholecystitis, hydrops of the gallbladder COMPLICATIONS/CHIEF COMPLAINT: Acute Cholecystitis. HISTORY OF PRESENT ILLNESS: See HPI HOSPITAL COURSE: Patient was admitted for symptoms of acute cholecystitis with right upper quadrant pain and discomfort. Initial WBC count is 16,000 with normal LFTs. Ultrasound documents markedly thickened gallbladder wall. Her symptoms are consistent with acute cholecystitis. She was started on ciprofloxacin and metronidazole. Her symptoms only mildly improved with nonoperative treatment. She was taken to the operating room on 10/02/2017 for laparoscopic cholecystectomy. Gallbladder was found to be markedly distended, inflamed with hydrops of the gallbladder and acute over chronic appearing cholecystitis. She successfully underwent laparoscopic cholecystectomy. A drain was left in place. Her postoperative labs shows normal LFTs. Her drain only put out a small amount of serosanguineous fluid. She felt improved and was able to tolerate regular food. She was subsequently discharged home in her drain was removed prior to discharge. DISCHARGE MEDICATIONS: Please see below. ALLERGIES: Please see below. PHYSICAL EXAMINATION ON DISCHARGE: VITAL SIGNS: Please see below. GENERAL: Comfortable HEENT: Anicteric sclerae NECK: Supple, no jugular venous distention CARDIOVASCULAR EXAMINATION: Regular heart rate and rhythm RESPIRATORY EXAMINATION: Lungs sounds are clear to auscultation bilaterally ABDOMINAL EXAMINATION: Round, soft, minimally distended. Port site incisions are clean, dry and intact. Drain site after removal of the FER drain is clean. EXTREMITIES: No edema SKIN: No jaundice no skin rashes NEUROLOGICAL EXAMINATION: Awake, alert, oriented PSYCHIATRIC EXAMINATION: Mood and affect is normal. LABORATORY DATA: Please see below. IMAGING: Ultrasound to gallbladder PROGNOSIS: Good ACTIVITY: Light activity 2 weeks. DIET: Low-fat diet. DISCHARGE PLAN: Discharged to home with follow-up in 2 weeks' time DISPOSITION: 01 Home, Self-Care. DISCHARGE INSTRUCTIONS: 1. May shower 48 hours after the surgery. 2. May remove gauze dressings prior to shower. Keep Steri-Strips for 1 week. 3. Pat incisions until dry. DISCHARGE CONDITION: Stable. TIME SPENT ON DISCHARGE: Greater than 30 minutes. Discharge Medications Scheduled ([place]-Linyah 0.25-35 mg-Mcg) 1 Tab Tab, 1 TAB PO DAILY, (Reported) Loratadine (Loratadine) 10 Mg Tab, 10 MG PO QHS, (Reported) Salmeterol/Fluticasone (Advair Diskus 100-50 Mcg/Dose) 28 Puff/Inhaler Aerp, 1 PUFF INH BID, (Reported) Scheduled PRN Acetaminophen (Tylenol) 325 Mg Tab, 650 MG PO Q4H PRN for PAIN, (Reported) Acetaminophen/Hydrocodone ([place], Anexsia 5/325) 1 Tab Tab, 1-2 TAB PO Q4HP PRN for MODERATE PAIN (PS 5-7) Albuterol Sulfate (Ventolin Hfa) 108 Mcg/Act Aer, 2 PUFFS INH Q4H PRN for SHORTNESS OF BREATH, (Reported) Allergies Coded Allergies: Azithromycin (Verified Allergy, Unknown, 09/30/17) Sulfa Antibiotics (Verified Allergy, Unknown, 09/30/17) RAJESH CABALLERO MD Oct 31, 2017 09:51
== END 2017-10-03 12:11 | disposition home or self-care (01) | DRG 415 ==
LOC: M ED 08:18 → M ED INP 12:20 → M PED 13:42
PROVIDERS: ADMIT Surgery; ATTEND Surgery
PROC: 0FT40ZZ Resection of Gallbladder, Open Approach (ICD-10-PCS; principal; 2017-10-02 11:00)
DX: K80.00 Calculus of gallbladder with acute cholecystitis without obstruction (principal); K82.1 Hydrops of gallbladder; Z79.899 Other long term (current) drug therapy; Z88.2 Allergy status to sulfonamides; Z88.1 Allergy status to other antibiotic agents